=== PATIENT | female | born 1995 | race Caucasian/White ===

== ENCOUNTER 2016-06-28 01:07 | Emergency (ER) | payer OTHER ==
[~2016-06-28] VITALS: Ht 167.6 cm; Wt 97.7 kg
[~2016-06-28 01:07] MED LIST: PRENATAL VITAMINS
[2016-06-28] MEDS ORDERED: SODIUM CHLORIDE 0.9% 1,000ML IVBOLUS ONE (02:30)
[2016-06-28] MEDS ORDERED: SODIUM CHLORIDE FLUSH 10ML SYR IVF ONE (02:30)
[2016-06-28 02:46] LABS: HEMOGLOBIN 14.2 g/dL (11.7-16.4)
[2016-06-28 02:57] LABS: BLOOD UREA NITROGEN 10 mg/dL (7-18)
[2016-06-28 04:36] VITALS: BP 111/62
== END 2016-06-28 04:40 | disposition home or self-care (01) ==
LOC: ED 03:59
DX: O03.4 Incomplete spontaneous abortion without complication (principal)
CPT/HCPCS: 36415; 76801; 80048; 82040; 84702; 85025; 96360; 99285; J7030